=== PATIENT | female | born 1950 | race Caucasian/White ===

== ENCOUNTER 2019-10-08 11:32 | Outpatient (CLI) | payer MEDICARE, OTHER ==
[2013-01-12 06:03] VITALS: BP 134/98
--- NOTE | 2019-10-09 04:51 | Diagnostic Imaging Report ---
PATIENT MR#: [id number] PATIENT PATIENT NAME: ADDY HUERTA DATE OF : 1950 REFERRING PHYSICIAN: Fredis Smiley EXAM DATE: 10/08/2019 ACCESSION NUMBER: [id number] EXAM DESCRIPTION: DEXA DUAL ENERGY X-RAY ABSORPTIOMETRY (DXA) A DXA scan was performed on October 08, 2019 using a [employer]vite densitometer. IMPRESSION: Based on BMD diagnosis is consistent with osteopenia (based on WHO criteria). Fracture risk is modera te. Treatment is advised. Follow-up exam recommended September 2021. INDICATION: Postmenopausal Technical Quality: Diagnostic RESULTS: Lumbar Spine The BMD measured in the L1-L4 region is 1.158 g/cm2 T-score -0.2 Total Hip The BMD measured at the total proximal femur is 0.876 g/cm2 T-score -1.0 Read by: Dr. Kaden Wood Transcribed by: Kaden Wood Transcribed Date: 10/09/2019 4:50:39 AM Electronically signed by: Dr. Kaden Wood Date signed: 10/09/2019 4:50:39 AM
== END 2019-10-08 11:42 ==
LOC: RAD 11:32
PROVIDERS: ATTEND Family Medicine
DX: Z13.820 Encounter for screening for osteoporosis (principal); Z78.0 Asymptomatic menopausal state
CPT/HCPCS: 77080